=== PATIENT | male | born 1995 | race Caucasian/White ===

== ENCOUNTER 2021-12-01 13:17 | Emergency (ER) | payer SELFPAY ==
[2021-12-01] MEDS ORDERED: Bacitracin Oint 1 GM U/D Packet TOP ONE (13:45)
[2021-12-01] MEDS ORDERED: Lidocaine 1% 10 ML MDV INJECT ONE (13:45)
== END 2021-12-01 14:33 | disposition home or self-care (01) ==
LOC: JP.ED 13:17
DX: S01.81XA Laceration without foreign body of other part of head, initial encounter (principal); F17.210 Nicotine dependence, cigarettes, uncomplicated; Z88.2 Allergy status to sulfonamides; W01.198A Fall on same level from slipping, tripping and stumbling with subsequent striking against other object, initial encounter
CPT/HCPCS: 12011; 99282; 99283